=== PATIENT | female | born 1975 | race Caucasian/White ===

== ENCOUNTER → 2017-01-13 | Outpatient (CLI) | payer OTHER ==
--- NOTE | 2017-01-15 12:31 | Diagnostic Imaging Report ---
Bilateral screening mammogram 2D views with tomosynthesis. The current study was also evaluated with a Computer Aided Detection (CAD) system. Indication: Screening. No current complaints stated on the questionnaire. COMPARISON: 01/15/2016. FINDINGS: The breasts are composed of heterogeneously dense parenchyma which may decrease mammographic sensitivity. There is an asymmetry along the upper aspect of the right MLO view measuring 8 mm in size with corresponding abnormality that has an associated questionable architectural distortion, tomographic image 20/59, in the right MLO projection. The left breast demonstrates no definite change. IMPRESSION: Focal compression view and ultrasound evaluation for upper right breast asymmetry is recommended. ACR BI-RADS Category 0: Incomplete. (Needs additional imaging evaluation). Result letter will be mailed to the patient. Note: At least 10% of breast cancer is not imaged by mammography. Dictated by: Dictated on workstation # [id number]
== END ==
LOC: RAD 13:19
PROVIDERS: ATTEND Obstetrics & Gynecology
DX: Z12.31 Encounter for screening mammogram for malignant neoplasm of breast (principal)
CPT/HCPCS: 77067

== ENCOUNTER → 2017-01-22 | Outpatient (CLI) | payer OTHER ==
--- NOTE | 2017-01-22 19:39 | Diagnostic Imaging Report ---
EXAMINATION: Right breast ultrasound. INDICATION: Asymmetry in the upper aspect of the right breast. FINDINGS: The four quadrants and retroareolar region of the right breast were scanned with no underlying abnormality seen. IMPRESSION: Negative study. Six-month followup for the upper right breast asymmetry is recommended to ensure no adverse development. ACR BI-RADS Category 3: Probably benign findings. Result letter will be mailed to the patient. Note: At least 10% of breast cancer is not imaged by mammography. Dictated by: Dictated on workstation # [id number]
--- NOTE | 2017-01-22 19:46 | Diagnostic Imaging Report ---
EXAMINATION: Right breast diagnostic mammogram with tomography. The current study was also evaluated with a Computer Aided Detection (CAD) system. INDICATION: Upper right breast view asymmetry. IMPRESSION: Asymmetry along the upper aspect of the right breast is less prominent on the true lateral view with no definitive underlying lesion. Slight asymmetric appearance with the question of architectural distortion in the upper aspect of the right breast on tomographic views is still seen. There is background markedly dense parenchyma which could obscure associated abnormality. IMPRESSION: Persistent but less prominent asymmetry along the upper aspect of the right breast. Ultrasound evaluation pending. ACR BI-RADS Category 0: Incomplete. (Needs additional imaging evaluation). Result letter will be mailed to the patient. Note: At least 10% of breast cancer is not imaged by mammography. Dictated by: Dictated on workstation # [id number]
== END ==
LOC: RAD 08:15
PROVIDERS: ATTEND Obstetrics & Gynecology
DX: R92.2 Inconclusive mammogram (principal); N64.89 Other specified disorders of breast
CPT/HCPCS: 76641

== ENCOUNTER 2017-07-20 01:37 | Emergency (ER) | payer OTHER ==
[~2017-07-20] VITALS: Ht 167.6 cm; Wt 72.6 kg
--- OUTSIDE RECORDS SUMMARY | 2017-07-20 01:42 | XMS REPORT | Continuity of Care Document ---
Author Author [facility] Organization [facility] Address Unknown Phone Unavailable Allergies There is no data. Medications There is no data. Problems Date Dx Coded Attending Type Code Diagnosis Diagnosed By 12/01/2014 Ot V76.12 12/01/2014 Ot V76.12 12/01/2014 JONN LUNA MD Ot V76.12 12/01/2014 JONN LUNA MD Ot V76.12 01/11/2016 Ot V76.12 OTH SCREEN MAMMO-MALIGN NEOPLASM OF [place] 01/11/2016 JONN LUNA MD Ot V76.12 OTH SCREEN MAMMO-MALIGN NEOPLASM OF [place] 01/11/2016 JONN LUNA MD Ot V76.12 OTH SCREEN MAMMO-MALIGN NEOPLASM OF [place] 01/11/2016 JONN LUNA MD Ot V76.12 OTH SCREEN MAMMO-MALIGN NEOPLASM OF [place] 01/15/2016 JONN LUNA MD Ot Z12.31 ENCNTR SCREEN MAMMOGRAM FOR MALIGNANT NE 01/13/2017 Ot V76.12 OTH SCREEN MAMMO-MALIGN NEOPLASM OF [place] 01/13/2017 JONN LUNA MD Ot V76.12 OTH SCREEN MAMMO-MALIGN NEOPLASM OF [place] 01/13/2017 JONN LUNA MD Ot V76.12 OTH SCREEN MAMMO-MALIGN NEOPLASM OF [place] 01/13/2017 JONN LUNA MD Ot V76.12 OTH SCREEN MAMMO-MALIGN NEOPLASM OF [place] 01/13/2017 JONN LUNA MD Ot Z12.31 ENCNTR SCREEN MAMMOGRAM FOR MALIGNANT NE Procedures There is no data. Results There is no data. Encounters ACCT No. Visit Date/Time Discharge Status Pt. Type Provider Facility Loc./Unit Complaint [id number] 01/26/2017 10:13:00 01/26/2017 23:59:59 CLS Preadmit JONN LUNA MD [facility] RAD R92.8,N64.89 [id number] 01/22/2017 08:15:00 01/22/2017 23:59:59 CLS Outpatient JONN LUNA MD [facility] RAD R92.2N N64.89 [id number] 01/13/2017 13:19:00 01/13/2017 23:59:59 CLS Outpatient JONN LUNA MD [facility] RAD SCREENING [id number] 01/11/2016 13:45:00 01/11/2016 23:59:59 CLS Outpatient JONN LUNA MD [facility] RAD SCREENING [id number] 12/01/2014 13:55:00 12/01/2014 23:59:59 CLS Outpatient JONN LUNA MD [facility] RAD SCREENING [id number] 11/22/2013 14:43:00 11/22/2013 23:59:59 CLS Outpatient JONN LUNA MD [facility] RAD ROUTINE [id number] 11/19/2012 13:36:00 11/19/2012 23:59:59 CLS Outpatient JONN LUNA MD [facility] RAD SCREENING [id number] 11/06/2011 06:57:00 Document Registration [id number] 05/03/2010 09:36:00 Document Registration
[2017-07-20] MEDS ORDERED: LACTATED RINGERS 1,000 ML IV ONE (02:02)
[2017-07-20] MEDS ORDERED: FAMOTIDINE 20MG/2ML IV (PEPCID) IV STA (02:02)
[2017-07-20] MEDS ORDERED: KETOROLAC 30 MG/ML VIAL IVP STA (02:02)
[2017-07-20] MEDS ORDERED: ONDANSETRON 4 MG/2 ML (SDV) Z0FRAN IVP ONE ×2 (02:15→03:30)
[2017-07-20 02:17] LABS: BASOPHILS % (AUTO) 0 % (0-10); CLARITY,URINE CLEAR; COLOR,URINE YELLOW; EOSINOPHILS # (AUTO) 0.1 10^3/uL (0.0-0.3); EOSINOPHILS % (AUTO) 1 % (0-10); GLUCOSE, URINE (UA) NEGATIVE (NEGATIVE); HEMATOCRIT 37 % (35-52); HEMOGLOBIN 13.3 G/DL (11.5-16.0); KETONES,URINE NEGATIVE (NEGATIVE); LEUKOCYTE ESTERASE ,URINE 2+ (NEGATIVE); LYMPHOCYTES # (AUTO) 1.5 X 10^3 (1.0-4.0); LYMPHOCYTES % (AUTO) 9 % (12-44); MEAN CORPUSCULAR HEMOGLOBIN 32 PG (25-34); MEAN CORPUSCULAR HGB CONC 36 G/DL (32-36); MEAN CORPUSCULAR VOLUME 89 FL (80-99); MEAN PLATELET VOLUME 9.8 FL (7.4-10.4); MONOCYTES # (AUTO) 0.5 X 10^3 (0.0-1.0); MONOCYTES % (AUTO) 3 % (0-12); NEUTROPHILS # (AUTO) 14.5 X 10^3 (1.8-7.8); NEUTROPHILS % (AUTO) 87 % (42-75); NITRITE,URINE NEGATIVE (NEGATIVE); PH,URINE 6 (5-9); PLATELET COUNT 361 10^3/uL (130-400); PROTEIN,URINE NEGATIVE (NEGATIVE); RED CELL DISTRIBUTION WIDTH 12.6 % (10.0-14.5); UROBILINOGEN,URINE 4 MG/DL (NORMAL); WHITE BLOOD COUNT 16.6 10^3/uL (4.3-11.0)
[2017-07-20 02:26] LABS: BILIRUBIN,URINE 1+ (NEGATIVE); RBC,URINE 0-2 /HPF; WBC,URINE 0-2 /HPF
[2017-07-20 02:27] LABS: BACTERIA,URINE TRACE /HPF
[2017-07-20 02:38] LABS: ALANINE AMINOTRANSFERASE 46 U/L (0-55); ALBUMIN 4.1 GM/DL (3.2-4.5); ALKALINE PHOSPHATASE 81 U/L (40-136); AMYLASE 71 U/L (25-125); BILIRUBIN,TOTAL 1.6 MG/DL (0.1-1.0); BUN/CREATININE RATIO 15; CALCIUM 9.2 MG/DL (8.5-10.1); CARBON DIOXIDE 24 MMOL/L (21-32); CHLORIDE 105 MMOL/L (98-107); CREATININE SERUM 0.84 MG/DL (0.60-1.30); GFR ESTIMATED > 60; GLUCOSE 130 MG/DL (70-105); LIPASE 33 U/L (8-78); POTASSIUM 3.7 MMOL/L (3.6-5.0); SODIUM 140 MMOL/L (135-145); TOTAL PROTEIN 7.7 GM/DL (6.4-8.2)
[2017-07-20 03:04] LABS: BAND NEUTROPHILS 4 %; LYMPHOCYTES % (MANUAL) 7 %; MONOCYTES % (MANUAL) 1 %; NEUTROPHILS % (MANUAL) 88 %; RBC MORPH NORMAL
[2017-07-20] MEDS ORDERED: IOHEXOL 350 MG/ML 100 ML (OMNIPAQUE 350) VIAL IV ONE (03:15)
[2017-07-20] MEDS ORDERED: CATHETER FLUSH 10 ML SYR IV PRN (03:15)
[2017-07-20] MEDS ORDERED: fentaNYL INJECTION 100 MCG/2 ML AMP IVP STA ×2 (03:21→03:57)
--- NOTE | 2017-07-20 03:31 | ED Abdominal Pain ---
General Chief Complaint: Abdominal/GI Problems Stated Complaint: R SIDE ABD PAIN/BACK PAIN Nursing Triage Note: PT REPORTS RUQ PAIN RADIATING TO HER BACK. SHE DENIES N/V/D OR FEVER. Sepsis Screen: No Definite Risk Source of Information: Patient History of Present Illness Date Seen by Provider: Jul 20, 2017 Time Seen by Provider: 01:55 Initial Comments PT STATES SHE THINKS SHE IS HAVING A GALL BLADDER ATTACK PT STATES SHE BEGAN HAVING SEVERE RUQ PAIN TODAY AT 1420--LASTED AN HOUR PAIN RETURNED AROUND 1930 AND LASTED 1 - 1 1/2 HOURS PAIN RETURNED AGAIN AROUND 2130 AND HAS NOT GONE AWAY--RATES PAIN 8/10 PAIN OCCASIONALLY RADIATES AROUND TO BACK HAS HAD NAUSEA, BUT NO VOMITING NO DIARRHEA NO FEVER NO URINARY SYMPTOMS HAD SAME THING APPROXIMATELY 2 WEEKS AGO, AND WENT AWAY AFTER AN HOUR ATE [facility] AROUND 1900 TONIGHT LMP --2 WEEKS AGO, DOES NOT HAVE PERIODS USUALLY SHE TAKES OCP'S CONTINUOUSLY AND DOES NOT TAKE PLACEBO PILLS FOR WEEK, BUT OCCASIONALLY MISSES DOSES AND WILL HAVE BLEEDING WHEN SHE MISSES A DOSE. PCP: DALY WADE [facility] [place] Allergies and Home Medications Allergies Coded Allergies: No Known Drug Allergies (Unverified , 07/20/17) Home Medications Hydrocodone/Acetaminophen 1 Each Tablet, 1-2 EACH PO Q4H, #20 Prescribed by: IGGY THOMAS on 07/20/17 0432 Ondansetron 4 Mg Tab.rapdis, 4 MG PO Q4H, #10 Prescribed by: IGGY THOMAS on 07/20/17 0432 Pantoprazole Sodium 40 Mg Tablet.dr, 40 MG PO DAILY, #15 Prescribed by: IGGY THOMAS on 07/20/17 0432 Review of Systems Constitutional: no symptoms reported Respiratory: No Symptoms Reported Cardiovascular: No Symptoms Reported Gastrointestinal: See HPI, Abdominal Pain, Nausea, Vomiting Genitourinary: No Symptoms Reported Musculoskeletal: no symptoms reported Skin: no symptoms reported Psychiatric/Neurological: No Symptoms Reported Endocrine: No Symptoms Reported Hematologic/Lymphatic: No Symptoms Reported Past Wvjlwlj-Itivma-Ncyqtl Hx Patient Social History Alcohol Use: Occasionally Uses Recreational Drug Use: No Smoking Status: Never a Smoker 2nd Hand Smoke Exposure: No Recent Foreign Travel: No Contact w/Someone Who Travel: No Recent Infectious Disease Expo: No Recent Hopitalizations: No Seasonal Allergies Seasonal Allergies: No Surgeries History of Surgeries: Yes (RIGHT KNEE SCOPE, BREAST REDUCTION) Surgeries: Appendectomy, Breast, Orthopedic Respiratory History of Respiratory Disorde: No Cardiovascular History of Cardiac Disorders: No Neurological History of Neurological Disord: No Reproductive System : No Female Reproductive Disorders: Denies Genitourinary History of Genitourinary Disor: No Gastrointestinal History of Gastrointestinal Di: No Musculoskeletal History of Musculoskeletal Dis: No Endocrine History of Endocrine Disorders: No HEENT History of HEENT Disorders: No Cancer History of Cancer: No Psychosocial History of Psychiatric Problem: No Integumentary History of Skin or Integumenta: No Blood Transfusions History of Blood Disorders: No Physical Exam Vital Signs VS - Last 72 Hours, by Label 07/20/17 07/20/17 01:50 03:36 Temp 97.3 97.3 Pulse 74 Resp 16 B/P (MAP) 122/68 (86) Pulse Ox 98 O2 Delivery Room Air Capillary Refill : Less Than 3 Seconds General Appearance: WD/WN, no apparent distress, other (LAYING OUTSTRETCHED AND SMILING, BUT HOLDING RUQ AREA) HEENT: PERRL/EOMI, No scleral icterus (R), No scleral icterus (L) Neck: normal inspection Respiratory: normal breath sounds, no respiratory distress, no accessory muscle use Cardiovascular: regular rate, rhythm, no murmur Gastrointestinal: normal bowel sounds, soft, no organomegaly, no pulsatile mass , No distended, guarding, No rebound, tenderness (EPIGASTRIC AND RUQ), No hernia , No mass Back: normal inspection, no CVA tenderness Neurologic/Psychiatric: community relations director II-XII nml as tested, no motor/sensory deficits, alert, normal mood/affect, oriented x 3 Skin: normal color, warm/dry, No rash Progress/Results/Core Measures Results/Orders Lab Results Laboratory Tests Test 07/20/17 02:05 Range/Units White Blood Count 16.6 H 4.3-11.0 10^3/uL Red Blood Count 4.20 L 4.35-5.85 10^6/uL Hemoglobin 13.3 11.5-16.0 G/DL Hematocrit 37 35-52 % Mean Corpuscular Volume 89 80-99 FL Mean Corpuscular Hemoglobin 32 25-34 PG Mean Corpuscular Hemoglobin Concent 36 32-36 G/DL Red Cell Distribution Width 12.6 10.0-14.5 % Platelet Count 361 130-400 10^3/uL Mean Platelet Volume 9.8 7.4-10.4 FL Neutrophils (%) (Auto) 87 H 42-75 % Lymphocytes (%) (Auto) 9 L 12-44 % Monocytes (%) (Auto) 3 0-12 % Eosinophils (%) (Auto) 1 0-10 % Basophils (%) (Auto) 0 0-10 % Neutrophils # (Auto) 14.5 H 1.8-7.8 X 10^3 Lymphocytes # (Auto) 1.5 1.0-4.0 X 10^3 Monocytes # (Auto) 0.5 0.0-1.0 X 10^3 Eosinophils # (Auto) 0.1 0.0-0.3 10^3/uL Basophils # (Auto) 0.0 0.0-0.1 10^3/uL Neutrophils % (Manual) 88 % Lymphocytes % (Manual) 7 % Monocytes % (Manual) 1 % Band Neutrophils 4 % Blood Morphology Comment NORMAL Urine Color YELLOW Urine Clarity CLEAR Urine pH 6 5-9 Urine Specific [place] 1.025 H 1.016-1.022 Urine Protein NEGATIVE NEGATIVE Urine Glucose (UA) NEGATIVE NEGATIVE Urine Ketones NEGATIVE NEGATIVE Urine Nitrite NEGATIVE NEGATIVE Urine Bilirubin 1+ H NEGATIVE Urine Urobilinogen 4 H NORMAL MG/DL Urine Leukocyte Esterase 2+ H NEGATIVE Urine RBC (Auto) 2+ H NEGATIVE Urine RBC 0-2 /HPF Urine WBC 0-2 /HPF Urine Squamous Epithelial Cells 5-10 /HPF Urine Crystals NONE /LPF Urine Bacteria TRACE /HPF Urine Casts NONE /LPF Urine Mucus LARGE H /LPF Urine Culture Indicated NO Sodium Level 140 135-145 MMOL/L Potassium Level 3.7 3.6-5.0 MMOL/L Chloride Level 105 98-107 MMOL/L Carbon Dioxide Level 24 21-32 MMOL/L Anion Gap 11 5-14 MMOL/L Blood Urea Nitrogen 13 7-18 MG/DL Creatinine 0.84 0.60-1.30 MG/DL Estimat Glomerular Filtration Rate > 60 BUN/Creatinine Ratio 15 Glucose Level 130 H 70-105 MG/DL Calcium Level 9.2 8.5-10.1 MG/DL Total Bilirubin 1.6 H 0.1-1.0 MG/DL Aspartate Amino Transf (AST/SGOT) 66 H 5-34 U/L Alanine Aminotransferase (ALT/SGPT) 46 0-55 U/L Alkaline Phosphatase 81 40-136 U/L Total Protein 7.7 6.4-8.2 GM/DL Albumin 4.1 3.2-4.5 GM/DL Amylase Level 71 25-125 U/L Lipase 33 8-78 U/L My Orders Orders - IGGY THOMAS DO Saline Lock/Iv-Start (07/20/17 02:02) Urine Bedside (07/20/17 02:02) Amylase (07/20/17 02:02) Cbc With Automated Diff (07/20/17 02:02) Comprehensive Metabolic Panel (07/20/17 02:02) Lipase (07/20/17 02:02) Ua Culture If Indicated (07/20/17 02:02) Ct Abdomen/Pelvis W (07/20/17 02:02) Abdomen, Flat & Upright/Decub (07/20/17 02:02) Saline Lock/Iv-Start (07/20/17 02:02) Saline Lock/Iv-Start (07/20/17 02:02) Ketorolac Injection (Toradol Injection) (07/20/17 02:02) Ondansetron Injection (Zofran Injectio (07/20/17 02:15) Famotidine Injection (Pepcid Injection) (07/20/17 02:02) Lactated Ringers (Lr 1000 Ml Iv Solution (07/20/17 02:02) Manual Differential (07/20/17 02:05) Iohexol Injection (Omnipaque 350 Mg/Ml 1 (07/20/17 03:15) Sodium Chloride Flush (Catheter Flush Sy (07/20/17 03:15) Fentanyl Injection (Sublimaze Injection (07/20/17 03:21) Ondansetron Injection (Zofran Injectio (07/20/17 03:30) Fentanyl Injection (Sublimaze Injection (07/20/17 03:57) Rx-Hydrocodone/Apap 5-325 Mg (Rx-Vicodin (07/20/17 04:45) Rx-Ondansetron Po (Rx-Zofran Po) (07/20/17 04:32) Medications Given in ED Current Medications Medications Dose Ordered Sig/Deisy Route Start Time Stop Time Status Last Admin Dose Admin Iohexol 100 ml ONCE ONCE IV 07/20/17 03:15 07/20/17 04:27 DC 07/20/17 03:25 100 ML Lactated Ringer's 1,000 ml @ 0 mls/hr Q0M ONCE IV 07/20/17 02:02 07/20/17 02:06 DC 07/20/17 02:21 0 MLS/HR Ondansetron HCl 4 mg ONCE ONCE IVP 07/20/17 02:15 07/20/17 02:16 DC 07/20/17 02:20 4 MG Ondansetron HCl 8 mg ONCE ONCE IVP 07/20/17 03:30 07/20/17 03:31 DC 07/20/17 03:36 8 MG Sodium Chloride 10 ml NEEDED PRN IV 07/20/17 03:15 07/20/17 03:25 10 ML Vital Signs/I&O Vital Sign - Last 12Hours 07/20/17 07/20/17 01:50 03:36 Temp 97.3 97.3 Pulse 74 Resp 16 B/P (MAP) 122/68 (86) Pulse Ox 98 O2 Delivery Room Air Blood Pressure Mean: 86 Point of Care Testing Urine -Bedside: Negative Progress Note : Progress Note NO RELIEF OF PAIN WITH TORADOL GIVEN FENTANYL WITH RESOLUTION OF PAIN NAUSEA RELIEVED WITH ZOFRAN PT FEELS COMFORTABLE GOING HOME 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 PER [facility] VIA FAX @ [phone] Reviewed: Reviewed by Me Departure Impression Impression: Primary Impression: Cholelithiasis Disposition: HOME, SELF-CARE Condition: Improved Departure-Patient Inst. Referrals: BRETT TURK DO NO,LOCAL PHYSICIAN (PCP) Primary Care Physician Patient Instructions: Gallstones (DC) Add. Discharge Instructions: CLEAR LIQUIDS TODAY--WATER, BROTH, JELLO, GATORADE TOMORROW IF YOUR ARE BETTER, ADD BRATS DIET TO CLEAR LIQUIDS--BANANAS, RICE, APPLESAUCE, TOAST, SALTINES CALL DR. TURK'S OFFICE TODAY TO ARRANGE FOR FOLLOW UP APPOINTMENT THIS WEEK RETURN TO ER IF SYMPTOMS WORSE All discharge instructions reviewed with patient and/or family. Voiced understanding. Scripts Pantoprazole Sodium (Protonix) 40 Mg Tablet.dr 40 MG PO DAILY, #15 TAB Prov: IGGY THOMAS DO 07/20/17 Ondansetron (Zofran Odt) 4 Mg Tab.rapdis 4 MG PO Q4H for Nausea/Vomiting, #10 TAB Prov: IGGY THOMAS DO 07/20/17 Hydrocodone/Acetaminophen (Hydrocodon-Acetaminoph 7.5-325) 1 Each Tablet 1-2 EACH PO Q4H for Pain, #20 TAB Prov: IGGY THOMAS DO 07/20/17 IGGY THOMAS DO Jul 20, 2017 03:31
[2017-07-20] MEDS ORDERED: HYDR-3816 PO ×2 (04:32)
[2017-07-20] MEDS ORDERED: RX-HYDROCODONE/APAP 5/325 MG #4 TAB PK PO ONE (04:32)
[2017-07-20] MEDS ORDERED: RX-ONDANSETRON 4 MG ODT (ZOFRAN) PPK #4 PO STA (04:32)
[2017-07-20] MEDS ORDERED: PANT40TA2 PO ×2 (04:32)
[2017-07-20] MEDS ORDERED: ONDA4TAB8 PO ×2 (04:32)
[2017-07-20] MEDS ORDERED: RX-ONDANSETRON 4 MG ODT (ZOFRAN) PPK #4 ONE (04:32)
[2017-07-20 04:40] VITALS: BP 120/74
[2017-07-20] MEDS ORDERED: RX-HYDROCODONE/APAP 5/325 MG #4 TAB PK PO PRN (04:45)
--- NOTE | 2017-07-20 06:29 | Diagnostic Imaging Report ---
INDICATION: Right upper quadrant pain. COMPARISON: CT abdomen and pelvis performed earlier same day. FINDINGS: Nonobstructive bowel gas pattern. No free intraperitoneal air. Small physiologic volume of colonic stool. Lung bases are clear. Normal regional skeleton. IMPRESSION: Nonobstructive bowel gas pattern and no free intraperitoneal air. Dictated by: Dictated on workstation # [id number]
--- NOTE | 2017-07-20 06:49 | Diagnostic Imaging Report ---
PROCEDURE: CT abdomen and pelvis with contrast. TECHNIQUE: Multiple contiguous axial images were obtained through the abdomen and pelvis after administration of intravenous contrast. INDICATION: Right upper quadrant pain. COMPARISON: None available. FINDINGS: Lower chest: The lung bases are clear. No pericardial or pleural effusion. Peritoneum: No free intraperitoneal air or fluid. Liver and biliary system: Mild increased perfusion around the gallbladder fossa which can be seen with acute cholecystitis. Gallbladder is distended with radiopaque gallstones present. No evidence of gallbladder wall thickening or pericholecystic fluid. The common bile duct is borderline dilated measuring 0.6 cm. Spleen and Pancreas: Spleen is normal. The pancreas enhances normally without mass lesion or peripancreatic inflammatory changes. Adrenals: Normal. tract: The kidneys enhance normally without suspicious mass or obstruction. Urinary bladder is distended without wall thickening. The uterus and ovaries are normal in appearance for patient's age. GI tract: Stomach is decompressed. No bowel obstruction. No pericolonic inflammatory changes. Appendix is not seen with certainty, although there are no inflammatory changes in the right lower quadrant to suggest acute appendicitis. Vasculature and Lymph nodes: Normal caliber aorta. No abdominal or pelvic lymphadenopathy. Musculoskeletal: No concerning osseous lesion. IMPRESSION: 1. Cholelithiasis with borderline common bile duct dilatation. If there is concern for acute cholecystitis or choledocholithiasis, consider right upper quadrant ultrasound or MRCP for further characterization. 2. Findings are in agreement with the preliminary report. Dictated by: Dictated on workstation # [id number]
== END 2017-07-20 04:40 | disposition home or self-care (01) ==
LOC: EDUNIT# 01:37 → ER 01:38
DX: K80.20 Calculus of gallbladder without cholecystitis without obstruction (principal); Z90.49 Acquired absence of other specified parts of digestive tract
CPT/HCPCS: 36415; 74019; 74177; 80053; 81000; 82150; 83690; 84703; 85007; 85027; 96361; 96374; 96375; 96376

== ENCOUNTER 2017-07-20 15:15 | Outpatient (CLI) | payer OTHER ==
[~2017-07-20] VITALS: Ht 167.6 cm; Wt 72.6 kg
[~2017-07-20 15:15] MED LIST: HYDR-3816 PO; ONDA4TAB8 PO; PANT40TA2 PO
== END 2017-07-20 15:37 ==
LOC: PREOP 15:15
PROVIDERS: ATTEND Surgery
DX: Z01.812 Encounter for preprocedural laboratory examination (principal); K80.20 Calculus of gallbladder without cholecystitis without obstruction
CPT/HCPCS: 84703

== ENCOUNTER 2017-07-21 10:01 | Day surgery (SDC) | payer OTHER ==
[~2017-07-21] VITALS: Ht 167.6 cm; Wt 72.6 kg
[2017-07-21] MEDS ORDERED: ceFAZolin 1,000 MG (ANCEF) VIAL ONE (10:32)
[2017-07-21] MEDS ORDERED: NS (IVPB) 0 ML ONE (10:32)
[2017-07-21] MEDS ORDERED: ONDANSETRON 4 MG/2 ML (SDV) Z0FRAN ONE ×2 (10:39→11:05)
[2017-07-21] MEDS ORDERED: FAMOTIDINE 20MG/2ML IV (PEPCID) ONE (10:39)
[2017-07-21] MEDS ORDERED: SCOPOLAMINE 1.5 MG (TRANSDERM-SCOP) PATCH ONE (10:39)
[2017-07-21] MEDS ORDERED: ONDANSETRON 4 MG/2 ML (SDV) Z0FRAN IV ONE (10:45)
[2017-07-21] MEDS ORDERED: FAMOTIDINE 20MG/2ML IV (PEPCID) IV ONE (10:45)
[2017-07-21] MEDS ORDERED: SCOPOLAMINE 1.5 MG (TRANSDERM-SCOP) PATCH TOP ONE (10:45)
[2017-07-21] MEDS ORDERED: LACTATED RINGERS 1,000 ML IV PRN (10:49)
[2017-07-21] MEDS ORDERED: LIDOCAINE 1% INJ 20 ML (XYLOCAINE) VIAL ONE (10:49)
[2017-07-21] MEDS ORDERED: BUPIVACAINE 0.5% 30 ML (SENSORCAINE) VIAL ONE (10:49)
[2017-07-21] MEDS: LACTATED RINGERS 1,000 ML IV PRN ×2 (10:53→12:15)
[2017-07-21 10:56] VITALS: BP 105/65
[2017-07-21] MEDS ORDERED: ceFAZolin 1 GM/NS 50 ML IVPB IV ONE ×2 (11:00)
[2017-07-21] MEDS ORDERED: ceFAZolin INJECTION 1,000 MG in NS (IVPB) 50 ML IV ONE (11:00)
[2017-07-21] MEDS ORDERED: ROCURONIUM 50 MG/5 ML (ZEMURON) VIAL IV ONE (11:05)
[2017-07-21] MEDS ORDERED: LIDOCAINE PF 2% 5 ML (XYLOCAINE) VIAL ONE (11:05)
[2017-07-21] MEDS ORDERED: proPOfol 200 MG/20 ML (DIPRIVAN) VIAL IV ONE (11:05)
[2017-07-21] MEDS ORDERED: fentaNYL INJECTION 100 MCG/2 ML AMP ONE ×2 (11:06→11:43)
[2017-07-21] MEDS ORDERED: DEXAMETHASONE 10 MG/ML (DECADRON) 1 ML VIAL ONE (11:06)
[2017-07-21] MEDS ORDERED: MIDAZOLAM 2 MG/2 ML (VERSED) VIAL ONE (11:06)
--- NOTE | 2017-07-21 11:29 | Progress Note-Pre Operative ---
Pre-Operative Progress Note H&P Reviewed The H&P was reviewed, patient examined and no changes noted. Date Seen by Provider: Jul 21, 2017 Time Seen by Provider: 11:28 Date H&P Reviewed: Jul 21, 2017 Time H&P Reviewed: : Pre-Operative Diagnosis: ruq abdominal pain, cholelithiasis BRETT TURK DO Jul 21, 2017 11:29
[2017-07-21] MEDS ORDERED: SEVOFLURANE (ULTANE) 15 ML INHAL SOLN ONE ×5 (12:14)
[2017-07-21] MEDS ORDERED: NEOSTIGMINE (BLOXIVERZ ) 1 MG/1ML 10 ML VIAL ONE (12:26)
[2017-07-21] MEDS ORDERED: GLYCOPYRROLATE 0.2 MG/ML (ROBINUL) 2 ML VIAL ONE (12:26)
--- NOTE | 2017-07-21 12:29 | Progress Note-Post Operative ---
Post-Operative Progess Note Surgeon (s)/Pet Resort Concierge (s) Surgeon BRETT TURK DO Pet Resort Concierge: Dr. Carolina Pre-Operative Diagnosis ruq abdominal pain, cholelithiasis Post-Operative Diagnosis cholelithiasis, acute cholecystitis Procedure & Operative Findings Date of Procedure 07/21/17 Procedure Performed/Findings lap javier c ioc Anesthesia Type Gen Estimated Blood Loss Estimated blood loss (mL): minimal Specimens/Packing Specimens Removed gallbladder BRETT TURK DO Jul 21, 2017 12:29
[2017-07-21] MEDS ORDERED: HYDROcodone/APAP 5 MG/325 MG (LORTAB) TAB PO PRN (12:30)
--- NOTE | 2017-07-21 12:31 | Discharge Inst-Simple/Standard ---
Discharge Inst-Standard Patient Instructions/Follow Up Plan of Care/Instructions/FU: 2 weeks Sabine Activity as Tolerated: No Discharge Diet: Regular Diet Other Inst to Patient Follow up Appt: Make appointment for 2 weeks. Instructions: No lifting greater than 10 pounds. No strenuous activity. May shower in 24 hours, no tub bath or soaking. Use incentive spirometer at home as directed. No Smoking Skin/Wound Care: You have special glue over incisions it will fall off on its own. Symptoms to Report: Appetite Changes, Extremity Discoloration, Numbness/Tingling, Swelling Increased , Bleeding Excessive, Eyesight Changes, Pain Increased, Urine Color Change, Constipation(Persistent), Fever over 101 degree F, Pain/Pressure in chest, Urinating Difficulty, Cough Up/Vomit Blood, Heart Beat Irreg/Pounding, Pain/ Pressure in jaw, Vaginal Bleeding Increase, Cramps in feet or legs, Lightheadedness, Pain/Pressure in shoulder, Diarrhea(Persistent), Memory Changes Suddenly, Questions/Concerns, Weight gain consecutive days, Dizziness/ Fainting, Nausea/Vomiting, Shortness of Breath, Weight gain over 2 pounds. If eyes or skin turn yellow notify physician. If questions or concerns contact your physician Or seek help at emergency department. BRETT TURK DO Jul 21, 2017 12:31
[2017-07-21] MEDS ORDERED: KETOROLAC 30 MG/ML VIAL ONE (12:42)
[2017-07-21] MEDS ORDERED: PROMETHAZINE INJ 25 MG/ML (PHENERGAN) AMP IVP PRN (12:45)
[2017-07-21] MEDS: morphine INJ 10 MG/ML 1ML (SYR OR VIAL) IVP PRN ×2 (12:45→12:54)
[2017-07-21] MEDS ORDERED: HYDROmorphone (DILAUDID) 2 MG/ML VIAL IVP PRN (12:45)
[2017-07-21] MEDS ORDERED: ONDANSETRON 4 MG/2 ML (SDV) Z0FRAN IVP PRN (12:45)
[2017-07-21] MEDS ORDERED: KETOROLAC 30 MG/ML VIAL IVP ONE (13:00)
[2017-07-21 13:25] VITALS: BP 125/67
--- NOTE | 2017-07-21 13:35 | Diagnostic Imaging Report ---
INDICATION: Intraoperative cholangiogram. Fluoroscopy was provided during performance of an intraoperative cholangiogram. 9 seconds of fluoroscopy was utilized. Images demonstrate contrast being injected via the cystic duct remnant. The intrahepatic and extra hepatic bile ducts are of normal caliber. No filling defects are seen to suggest retained stone. There is contrast flowing into the duodenum. IMPRESSION: Fluoroscopy for intraoperative cholangiogram. Dictated by: Dictated on workstation # [id number]
[2017-07-21 13:55] VITALS: BP 110/65
[2017-07-21 14:25] VITALS: BP 107/70
[2017-07-21 14:45] VITALS: BP 107/70
--- NOTE | 2017-07-21 23:48 | OPERATIVE REPORT ---
DATE OF SERVICE: 07/21/2017 PREOPERATIVE DIAGNOSES: 1. Right upper quadrant abdominal pain. 2. Cholelithiasis. POSTOPERATIVE DIAGNOSES: 1. Cholelithiasis. 2. Acute cholecystitis. PROCEDURE: Laparoscopic cholecystectomy with intraoperative cholangiogram. SURGEON: Brett Regalado DO. GEOTECHNICIAN: Dr. Carolina, assisted in retraction, dissection and closure. ANESTHESIA: General. ESTIMATED BLOOD LOSS: Minimal. COMPLICATIONS: None. INDICATIONS: The patient is a 42-year-old female who has been having some right upper quadrant abdominal pain. It got really severe and had evaluation in the Emergency Department, she was sent home and she was seen by me the following day for evaluation. She was explained the risks and benefits of procedure which she understands and wished to proceed with procedure. Consent was signed in the chart. PROCEDURE: The patient was taken to the operating suite. She was prepped and draped in sterile fashion. Surgical pause was performed. Maritza technique was used to enter the abdomen just above the umbilicus. Ballon trocar was then inserted into the abdomen and pneumoperitoneum was achieved. Under direct visualization of laparoscope, 5 mm trocar was placed in the subxiphoid region and two 5 mm trocars were placed in the right upper quadrant. Gallbladder was distended, grasped, elevated. There were adhesions to it, these adhesions were then taken down bluntly with a [place]. The cystic duct and cystic artery were then dissected out. Clips were placed on the proximal and distal portion of the cystic artery and a clip was placed on the distal portion of the cystic duct. The duct was then partially transected and an arrow catheter was inserted and cholangiogram was then performed. There were no filling defects. Contrast made its way into the duodenum without difficulty. The Arrow catheter was removed. Clips were placed on the proximal portion of the cystic duct. The duct and artery were then completely transected. Hook cautery was used to dissect the gallbladder from gallbladder fossa achieving hemostasis. The gallbladder was placed in an Endobag and removed through the 12 mm trocar site. The abdomen was then irrigated with copious amounts of irrigation. Hemostasis had been achieved. The abdomen was then desufflated, trocars were removed. A 0 Vicryl was used to close the 12 mm fascial defect with a [id number] fashion. The skin was then closed using 4-0 Monocryl in a subcuticular fashion. The area was then washed and dried. Dermabond was placed over the incisions. The patient tolerated the procedure well without any complications. She was taken to recovery room in stable condition. Job ID: [id number] DocumentID: [id number] Dictated Date: 07/21/2017 15:00:58 [place] Representative Date: 07/21/2017 23:46:31 Dictated By: BRETT REGALADO DO
== END 2017-07-21 14:45 | disposition home or self-care (01) ==
LOC: SDC 10:01
PROVIDERS: ATTEND Surgery
DX: K80.12 Calculus of gallbladder with acute and chronic cholecystitis without obstruction (principal)
CPT/HCPCS: 87081

== ENCOUNTER → 2017-11-25 | Outpatient (CLI) | payer OTHER ==
[~2017-11-25] MED LIST changes: +HYDR-34 PO; -HYDR-3816 PO
--- NOTE | 2017-11-25 22:22 | Diagnostic Imaging Report ---
INDICATION: Asymmetric density on previous exam. At this time there are no current complaints. EXAMINATION: Bilateral breast digital diagnostic mammogram with CAD. 3D tomographic images were obtained and reviewed. The current study was also evaluated with a Computer Aided Detection (CAD) system. COMPARISON: This study was compared to the prior exams of 01/13/2017, 01/11/2016, 12/01/2014 and 11/22/2013. FINDINGS: The previous exam of 01/14/2016 noted asymmetric density in the superior aspect of the right breast. The diagnostic mammogram and ultrasound exam of 01/22/2017 failed to show any evidence of malignancy. A six-month followup mammogram was recommended but to my knowledge that study was not performed. On this exam, the area of architectural distortion in the superior aspect of the right breast, seen previously, does not seen as conspicuous, particularly on the ML view. I suspect that the apparent architectural distortion was related to fibroglandular tissue alone. The overall appearance of the breast, itself, has not changed significantly. The fibroglandular tissue in both breasts is dense. This does limit the sensitivity of this exam. There is no primary or second sign of malignancy noted. IMPRESSION: 1. The area of architectural distortion in the superior aspect of the right breast, seen previously, is not as conspicuous on this exam. Most likely this finding was secondary to fibroglandular tissue alone. There is no evidence of malignancy involving either breast. 2. The patient should have her annual bilateral screening mammogram on schedule in November of 2018. ACR BI-RADS Category 1: Negative. Result letter will be mailed to the patient. Note: At least 10% of breast cancer is not imaged by mammography. Dictated by: Dictated on workstation # [id number]
== END ==
LOC: RAD 13:46
PROVIDERS: ATTEND Obstetrics & Gynecology
DX: N64.89 Other specified disorders of breast (principal); R92.8 Other abnormal and inconclusive findings on diagnostic imaging of breast
CPT/HCPCS: 77066

== ENCOUNTER → 2019-03-31 | Outpatient (CLI) | payer OTHER ==
--- NOTE | 2019-03-31 08:44 | Diagnostic Imaging Report ---
INDICATION: Routine screening. COMPARISON: 11/25/2017 and 01/13/2017. TECHNIQUE: 2D and 3D bilateral screening mammography was performed with CAD. FINDINGS: Both breasts remain heterogeneously dense, limiting the sensitivity of mammography. Benign calcifications are noted. The breast parenchymal pattern is stable. No mass or malignant appearing microcalcifications are seen. The axillae are unremarkable. IMPRESSION: No mammographic features suspicious for malignancy are identified. ACR BI-RADS Category 2: Benign findings. Result letter will be mailed to the patient. Note: At least 10% of breast cancer is not imaged by mammography. Dictated by: Dictated on workstation # [id number]
== END ==
LOC: RAD 07:54
PROVIDERS: ATTEND Obstetrics & Gynecology
DX: Z12.31 Encounter for screening mammogram for malignant neoplasm of breast (principal)
CPT/HCPCS: 77067

== ENCOUNTER → 2020-12-20 | Outpatient (CLI) | payer OTHER ==
--- NOTE | 2020-12-21 10:21 | Diagnostic Imaging Report ---
INDICATION: Routine screening. Comparison is made with prior mammogram 03/31/2019 and 11/25/2017. 2-D and 3-D bilateral screening mammography was performed with CAD. Both breasts remain heterogeneously dense, limiting the sensitivity of mammography. The parenchymal pattern is stable. No mass or malignant appearing microcalcifications are seen. Axillae are unremarkable. IMPRESSION: BI-RADS Category 1 No mammographic features suspicious for malignancy are identified. ACR BI-RADS Category 1: Negative. Result letter will be mailed to the patient. Note: At least 10% of breast cancer is not imaged by mammography. Dictated by: Dictated on workstation # [id number]
== END ==
LOC: RAD 14:45
PROVIDERS: ATTEND Obstetrics & Gynecology
DX: Z12.31 Encounter for screening mammogram for malignant neoplasm of breast (principal)
CPT/HCPCS: 77063; 77067

== ENCOUNTER → 2022-03-28 | Outpatient (CLI) | payer OTHER ==
--- NOTE | 2022-03-28 10:19 | Diagnostic Imaging Report ---
Indication: Routine screening. Comparison is made with prior mammograms from 12/20/2020 and 03/31/2019. 2-D and 3-D bilateral screening mammography was performed with CAD. Both breasts are heterogeneously dense, limiting the sensitivity of mammography. The parenchymal pattern is stable. No mass or malignant-appearing microcalcifications are seen. Axillae are unremarkable. IMPRESSION: BI-RADS Category 1 No mammographic features suspicious for malignancy are identified. ACR BI-RADS Category 1: Negative. Result letter will be mailed to the patient. Note: At least 10% of breast cancer is not imaged by mammography. Dictated by: Dictated on workstation # [id number]
== END ==
LOC: RAD 09:15
PROVIDERS: ATTEND Obstetrics & Gynecology
DX: Z12.31 Encounter for screening mammogram for malignant neoplasm of breast (principal)
CPT/HCPCS: 77063; 77067